=== PATIENT | male | born 1935 | race Caucasian/White ===

== ENCOUNTER 2016-06-01 16:04 | Emergency (ER) | payer MEDICARE ==
--- NOTE | 2016-06-01 16:19 | Emergency Department Record ---
History of Present Illness - General Chief Complaint: Confusion Stated Complaint: CONFUSED,POSS STROKE Time Seen by Provider: 06/01/16 16:18 Source: Patient, Family Mode of Arrival: Ambulatory Limitations: No limitations - History of Present Illness Initial Comments: The patient is here due to mild confusion for the last 2 days. According to his he has had a hx of very mild dementia but it seems to be worse the last couple of days. He now is more confused at home and getting lost at times and not remembering what he is supposed to be doing. The patient and deny any recent illnesses, fever, chills, cough, CP, SOB, JOVEL or trauma. MD Complaint: Confusion Onset/Timin -: Days(s) Severity: Mild Consistency: Intermittent - Alba Coma Scale Eye Response: (4) Open spontaneously Motor Response: (6) Obeys commands Verbal Response: (4) Confused conversation Lyly Total: 14 - Related Data Home Medications Medication Instructions Recorded Confirmed Last Taken Albuterol Sulfate [Proventil Hfa] 1 puff IH DAILY 01/14/16 06/01/16 1 Day Ago Alendronate Sodium [Alendronate 70 mg PO DAILY 01/14/16 06/01/16 1 Day Ago Sodium] Aspirin [Adult Low Dose Aspirin EC] 81 mg PO DAILY 01/14/16 06/01/16 1 Day Ago Budesonide/Formoterol Fumarate 1 puff IH DAILY 01/14/16 06/01/16 1 Day Ago [Symbicort 80-4.5 Mcg Inhaler] Calcium Carbonate 600 mg PO DAILY 01/14/16 06/01/16 1 Day Ago Carvedilol [Coreg] 6.25 mg PO BID 01/14/16 06/01/16 1 Day Ago Gemfibrozil [Lopid] 600 mg PO BID 01/14/16 06/01/16 1 Day Ago Glimepiride [Glimepiride] 4 mg PO DAILY 01/14/16 06/01/16 1 Day Ago Memantine HCl [Namenda] 10 mg PO BID 01/14/16 06/01/16 1 Day Ago Nitroglycerin [Nitrostat] 0.4 mg SL ASDIR PRN 01/14/16 06/01/16 1 Day Ago [place]-3 Fatty Acids [Fish Oil] 300 mg PO DAILY 01/14/16 06/01/16 1 Day Ago Omeprazole 20 mg PO DAILY 01/14/16 06/01/16 1 Day Ago Sitagliptin Phosphate [Januvia] 100 mg PO DAILY 01/14/16 06/01/16 1 Day Ago Losartan Potassium [Cozaar] 25 mg PO DAILY 06/01/16 06/01/16 1 Day Ago Allergies Allergy/AdvReac Type Severity Reaction Status Date / Time amoxicillin Allergy Unknown PT UNSURE Verified 06/01/16 16:17 OF REACTION cimetidine Allergy Unknown PT UNSURE Verified 06/01/16 16:17 OF REACTION dutasteride [From AVODART] Allergy Unknown PT UNSURE Verified 06/01/16 16:17 OF REACTION lisinopril Allergy Unknown PT UNSURE Verified 06/01/16 16:17 OF REACTION Allergies: Allergy Unknown PT UNSURE Uncoded 06/01/16 16:17 OF REACTION Travel Screening - Travel/Exposure Within Last 30 Days Have you traveled within the last 30 days?: No - Travel/Exposure Within Last Year Have you traveled outside the [place] in the last year?: No - Additonal Travel Details Have you been exposed to anyone with a communicable illness?: No - Travel Symptoms Symptom Screening: None Review of Systems Constitutional: Denies: Chills, Fever, Malaise Eyes: Denies: Eye discharge ENT: Denies: Congestion Respiratory: Denies: Cough, Dyspnea Cardiovascular: Denies: Chest pain Endocrine: Denies: Fatigue Gastrointestinal: Denies: Constipation, Diarrhea Genitourinary: Denies: Dysuria, Testicular mass Musculoskeletal: Denies: Back pain Skin: Denies: Bruising Past Medical History - SOCIAL HISTORY Smoking Status: Current every day smoker Alcohol Use: None Drug Use: None - RESPIRATORY Hx Respiratory Disorders: Yes Hx Bronchitis: Yes (recently-received treatment) Hx COPD: Yes (or emphysema) - CARDIOVASCULAR Hx Cardio Disorders: Yes Hx Cardiac Cath: Yes Hx Deep Vein Thrombosis: Yes (1996) Hx Heart Attack: Yes (1996) Hx Irregular Heartbeat: Yes Hx Coronary Stent: Yes (03/1997 x1 then x1 a week later, then x1 04/1997) - NEURO Hx Neuro Disorders: No Hx Dementia: (memory issues?) Comment:: memory issues getting worse - GI Hx GI Disorders: Yes Hx of Polyps: Yes - Hx Genitourinary Disorders: Yes Hx Prostate Problems: Yes (BPH) - ENDOCRINE Hx Endocrine Disorders: Yes Hx Diabetes: Yes (type 2) - MUSCULOSKELETAL Hx Musculoskeletal Disorders: Yes Hx Osteoporosis: Yes - PSYCH Hx Psych Problems: No - HEMATOLOGY/ONCOLOGY Hx Hematology/Oncology Disorders: No Family Medical History Any Significant Family History?: Yes Hx Cancer: Father, Brother/Sister Physical Exam - General General Appearance: Alert, Oriented x3 (The patient is oriented to name, place, day of the week but thinks the year is 2004. He knows his and the number of years he has been . ), Cooperative (The patient is very cooperative and pleasant and happy.), No acute distress - Head Head exam: Normal inspection - Eye Eye exam: Normal appearance, PERRL - ENT ENT exam: Normal exam, Mucous membranes moist, Normal external ear exam, Normal orophraynx, TM's normal bilaterally Throat exam: Normal inspection. negative: Tonsillar erythema, Tonsillar exudate - Neck Neck exam: Normal inspection, Full ROM. negative: Tenderness - Respiratory Respiratory exam: Normal lung sounds bilaterally. negative: Respiratory distress - Cardiovascular Cardiovascular Exam: Regular rate, Normal rhythm, Normal heart sounds - GI/Abdominal GI/Abdominal exam: Soft, Normal bowel sounds. negative: Tenderness - Back Back exam: Reports: Normal inspection - Neurological Neurological exam: Alert, Normal gait, Oriented X3. negative: Abnormal gait, Altered, Motor sensory deficit - Psychiatric Psychiatric exam: negative: Agitated, Anxious, Depressed Course Vital Signs 06/01/16 16:07 Temperature 98.0 F Pulse Rate 83 Respiratory 20 Rate Blood Pressure 198/91 Pulse Ox 94 L - Reevaluation(s) Reevaluation #1: The patient is doing very well at this time. I did discuss the labs and head CT with the patient and . I did discuss the issues with the patient and and did recommend hospital admission due to the fact the patient appears to be having new strokes. The would like to go to [facility] so we will make the necessary arrangements. 06/01/16 17:56 Reevaluation #2: The family would like to go to [facility] so I did discuss the case with Dr. Upton and he accepts the patient for admission in transfer. 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
[2016-06-01 16:47] LABS: BASO % 0.4 % (0-6); EOS % 1.9 % (0-6); GRAN % 72.7 % (47-80); HEMATOCRIT 47.2 % (42.0-52.0); HEMOGLOBIN 15.5 gm/dl (14.0-18.0); LYMPH % 15.1 % (16-45); MEAN CELL VOLUME 80.1 fl (81-97); MEAN CORPUSCULAR HEMOGLOBIN 26.3 pg (27-33); MEAN CORPUSCULAR HGB CONC 32.8 g/dl (32-36); MONO % 9.9 % (0-9); PLATELET COUNT 385 K/uL (130-400); RED BLOOD COUNT 5.89 M/uL (4.40-5.70); URINE APPEARANCE SL CLOUDY; URINE BILIRUBIN NEGATIVE (NEGATIVE); URINE BLOOD NEGATIVE (NEGATIVE); URINE COLOR YELLOW; URINE GLUCOSE (UA) NEGATIVE (NEGATIVE); URINE KETONE NEGATIVE (NEGATIVE); URINE LEUKOCYTE ESTERASE NEGATIVE (NEGATIVE); URINE NITRITE NEGATIVE (NEGATIVE); URINE PROTEIN NEGATIVE (NEGATIVE); URINE UROBILINOGEN 0.2 E.U./dL (0.20 - 1.00); WHITE BLOOD COUNT W/O DIFF 8.3 K/uL (4.2-12.2)
[2016-06-01 16:59] LABS: INR 1.03; PARTIAL THROMBOPLASTIN TIME 27.3 SECONDS (24.5-39.1); PROTHROMBIN TIME (PATIENT) 11.6 SECONDS (9.5-12.1)
[2016-06-01 17:39] LABS: ALB/GLOB RATIO 1.3 (1.1-1.8); ALBUMIN 4.4 gm/dL (3.5-5.0); ALKALINE PHOSPHATASE 130 U/L (38-126); ALT/SGPT 30 U/L (21-72); AST/SGOT 21 U/L (17-59); BILIRUBIN,TOTAL 0.69 mg/dL (0.2-1.3); BLOOD UREA NITROGEN 19 mg/dL (9-20); CREATINE PHOSPHOKINASE 63 U/L (55-170); CREATININE 0.9 mg/dL (0.66-1.25); EST GLOMERULAR FILTRATION RATE > 60 ml/min; GLUCOSE,RANDOM 130 mg/dL (70-110); TOTAL PROTEIN 7.9 gm/dL (6.3-8.2)
[2016-06-01 17:53] LABS: CKMB 1.3 ug/L (0-6)
[2016-06-01 17:55] LABS: TROPONIN I < 0.012 ng/mL (0.00-0.034)
[2016-06-01] MEDS ORDERED: ASPIRIN 325 MG TABLET PO ONE (17:59)
== END 2016-06-01 19:15 | disposition short-term general hospital (02) ==
LOC: ER 16:04
DX: I63.9 Cerebral infarction, unspecified (principal); I25.2 Old myocardial infarction; J44.9 Chronic obstructive pulmonary disease, unspecified; F17.210 Nicotine dependence, cigarettes, uncomplicated; E11.9 Type 2 diabetes mellitus without complications; Z79.84 Long term (current) use of oral hypoglycemic drugs
CPT/HCPCS: 70450; 80053; 81003; 82550; 82553; 84484; 85025; 85610; 85730; 93005; 93010; 99285

== ENCOUNTER 2017-01-07 15:26 | Emergency (ER) | payer MEDICARE ==
--- NOTE | 2017-01-07 15:52 | Emergency Department Record ---
History of Present Illness - General Chief Complaint: Wound, check Stated Complaint: SORE THAT KEEPS BLEEDING Time Seen by Provider: 01/07/17 15:37 Source: Patient, Family Mode of arrival: Ambulatory Limitations: No limitations - History of Present Illness Initial Comments: 81 yo male presents with a bleeding wound on his sacral area. His PCP Dr Parsons has been treating a superficial sacral woundfor about 3 weeks. He was cleaning the area today and it began to bleed. He is on Coumadin. NO other recent changes in his health. MD Complaint: Wound re-check -: Hour(s) (3) Initial Visit For: Other Returns Today for: Wound recheck Symptoms Since Prior Visit: No new symptoms Associated Symptoms: None - Related Data Home Medications Medication Instructions Recorded Confirmed Last Taken Atorvastatin Calcium 10 mg PO DAILY 01/07/17 01/07/17 Unknown Calcium Carb, Citrate/Vit D3 1 each PO DAILY 01/07/17 01/07/17 Unknown [Citracal + D ER Tablet] Cholecalciferol (Vitamin D3) 1,000 unit PO WEEKLY 01/07/17 01/07/17 Unknown [Vitamin D3] Warfarin Sodium [Coumadin] 2 mg PO DAILY 01/07/17 01/07/17 Unknown Allergies Allergy/AdvReac Type Severity Reaction Status Date / Time amoxicillin Allergy Unknown PT UNSURE Verified 06/01/16 16:17 OF REACTION cimetidine Allergy Unknown PT UNSURE Verified 06/01/16 16:17 OF REACTION dutasteride [From AVODART] Allergy Unknown PT UNSURE Verified 06/01/16 16:17 OF REACTION lisinopril Allergy Unknown PT UNSURE Verified 06/01/16 16:17 OF REACTION metformin Allergy DIARRHEA Verified 01/07/17 15:44 tamsulosin [From Flomax] Allergy ANAPHYLAXIS Verified 01/07/17 15:44 Allergies: Allergy Unknown PT UNSURE Uncoded 06/01/16 16:17 OF REACTION Review of Systems Constitutional: Denies: Chills, Fever, Malaise, Weakness Eyes: Denies: Eye discharge, Eye pain, Photophobia, Vision change ENT: Denies: Congestion, Throat pain Respiratory: Denies: Cough, Dyspnea, Hemoptysis, Stridor, Wheezes Cardiovascular: Denies: Chest pain, Palpitations, Syncope Endocrine: Denies: Fatigue Gastrointestinal: Denies: Abdominal pain, Diarrhea, Nausea, Vomiting Genitourinary: Denies: Dysuria, Frequency, Hematuria Musculoskeletal: Denies: Arthralgia, Back pain, Myalgia Skin: Reports: As per HPI, Other. Denies: Bruising, Change in color Neurological: Denies: Confusion Psychiatric: Denies: Anxiety Hematological/Lymphatic: Reports: Easy bleeding, Easy bruising Past Medical History - SOCIAL HISTORY Smoking Status: Current every day smoker Drug Use: None - RESPIRATORY Hx Respiratory Disorders: Yes Hx Bronchitis: Yes (recently-received treatment) Hx COPD: Yes (or emphysema) - CARDIOVASCULAR Hx Cardio Disorders: Yes Hx Cardiac Cath: Yes Hx Deep Vein Thrombosis: Yes (1996) Hx Heart Attack: Yes (1996) Hx Irregular Heartbeat: Yes Hx Coronary Stent: Yes (03/1997 x1 then x1 a week later, then x1 04/1997) - NEURO Hx Neuro Disorders: No Hx Dementia: (memory issues?) Comment:: memory issues getting worse - GI Hx GI Disorders: Yes Hx of Polyps: Yes - Hx Genitourinary Disorders: Yes Hx Prostate Problems: Yes (BPH) - ENDOCRINE Hx Endocrine Disorders: Yes Hx Diabetes: Yes (type 2) - MUSCULOSKELETAL Hx Musculoskeletal Disorders: Yes Hx Osteoporosis: Yes - PSYCH Hx Psych Problems: No - HEMATOLOGY/ONCOLOGY Hx Hematology/Oncology Disorders: No Family Medical History Hx Cancer: Father, Brother/Sister Physical Exam - General General Appearance: Alert, Oriented x3, Cooperative, No acute distress Limitations: No limitations - Head Head exam: Atraumatic, Normal inspection - Eye Eye exam: Normal appearance - ENT ENT exam: Normal exam Ear exam: Normal external inspection Nasal Exam: Normal inspection Mouth exam: Normal external inspection - Neck Neck exam: Normal inspection - Cardiovascular Peripheral Pulses: 2+: Radial (R), Radial (L) - Rectal Rectal exam: Other (superfical sacral skin ulcer with very superficial raw area inferior with oozing) - Extremities Extremities exam: Normal inspection Image of Full Body: 1 - superficial skin ulcer, below that is a raw area with mild oozing. - Back Back exam: Reports: Normal inspection - Neurological Neurological exam: Alert, Oriented X3 - Psychiatric Psychiatric exam: Normal affect, Normal mood - Skin Skin exam: Abrasion (sacral) Course - Reevaluation(s) Reevaluation #1: NR is 3.7 Hgb is 12 01/07/17 16:26 01/07/17 The area involved continue to ooze. The area was gently cauterized with silver nitrate with very good results with no recurrence of bleeding. The area was dressed with silvadene and non stick dressing. We discussed holding the next dose of Coumadin. He will recheck his INR first of the week with his PCP. He was given the number to the wound clinic in [place] and urged to contact his [place] home care nurse as well as they may be able to provide some in home care. Medical Decision Making - Lab Data Result diagrams: 01/07/17 15:55 01/07/17 15:55 Disposition Disposition: Discharge Clinical Impression: Sacral ulcer, Skin abrasion Disposition: Home, Self-Care Condition: (1) Good Instructions: Abrasion (ED) Additional Instructions: Return to the ER if the area continues to bleed Call your doctor and [phone] and ask for the wound center for a referral Change the dressing and apply the topical ointment daily Hold one dose of Coumadin and recheck your PT INR with your doctor Monday Forms: Patient Portal Access Time of Disposition: 15:57 Quality - Quality Measures Quality Measures: N/A - Blood Pressure Screening Does Patient Have Any of the Following: No Blood Pressure Classification: Pre-Hypertensive BP Reading Systolic Measurement: 102 Diastolic Measurement: 83 Screening for High Blood Pressure: < Pre-Hypertensive BP, F/U Documented > [ G8950] Pre-Hypertensive Follow-up Interventions: Referral to alternative/primary care provider.
[2017-01-07] MEDS: SILVER SULFADIAZINE 25 GM CREAM TOP ONE (16:00)
[2017-01-07 16:04] LABS: BASO % 0.3 % (0-6); EOS % 1.4 % (0-6); GRAN % 77.1 % (47-80); HEMATOCRIT 38.5 % (42.0-52.0); LYMPH % 12.2 % (16-45); MEAN CELL VOLUME 75.8 fl (81-97); MEAN CORPUSCULAR HEMOGLOBIN 23.6 pg (27-33); MEAN CORPUSCULAR HGB CONC 31.2 g/dl (32-36); MEAN PLATELET VOLUME 10.4 fl (7.4-10.4); PLATELET COUNT 389 K/uL (130-400); RED BLOOD COUNT 5.08 M/uL (4.40-5.70); RED CELL DISTRIBUTION WIDTH 15.3 % (11.5-14.5); WHITE BLOOD COUNT W/O DIFF 7.6 K/uL (4.2-12.2)
[2017-01-07 16:18] LABS: INR 3.7
[2017-01-07 16:22] LABS: PROTHROMBIN TIME (PATIENT) 40.5 SECONDS (9.5-12.1)
[2017-01-07 16:23] LABS: BLOOD UREA NITROGEN 17 mg/dL (8-23); CREATININE 0.7 mg/dL (0.7-1.2); EST GLOMERULAR FILTRATION RATE > 60 mL/min; GLUCOSE,RANDOM 149 mg/dL (74-109)
[2017-01-07] MEDS: GELATIN SPONGE,ABSORBABLE 1 EACH SPONGE TP ONE (16:47)
[2017-01-07] MEDS: TOPICAL LIDOCAINE W/ EPI 5 ML TOP ONE (16:48)
== END 2017-01-07 16:48 | disposition home or self-care (01) ==
LOC: ER 15:26
DX: L98.411 Non-pressure chronic ulcer of buttock limited to breakdown of skin (principal); Z79.01 Long term (current) use of anticoagulants
CPT/HCPCS: 80048; 85025; 85610; 99283

== ENCOUNTER 2017-02-04 10:35 | Emergency (ER) | payer MEDICARE ==
[2017-02-04 11:01] LABS: HEMATOCRIT 38.5 % (42.0-52.0); MEAN CELL VOLUME 74.8 fl (81-97); MEAN CORPUSCULAR HEMOGLOBIN 23.3 pg (27-33); MEAN CORPUSCULAR HGB CONC 31.2 g/dl (32-36); MEAN PLATELET VOLUME 9.8 fl (7.4-10.4); PLATELET COUNT 420 K/uL (130-400); RED BLOOD COUNT 5.15 M/uL (4.40-5.70); RED CELL DISTRIBUTION WIDTH 15.1 % (11.5-14.5); WHITE BLOOD COUNT W/O DIFF 10.4 K/uL (4.2-12.2)
[2017-02-04 11:11] LABS: INR 3.73
--- NOTE | 2017-02-04 11:14 | Emergency Department Record ---
History of Present Illness - General Chief Complaint: Altered Mental Status Stated Complaint: POSS STROKE Time Seen by Provider: 02/04/17 10:41 Source: Patient, Family () Mode of Arrival: Wheelchair - History of Present Illness Initial Comments: confusion today and he had a large CVA june, COPD and DM , Atrial fib with coumadin, some dementia. Bryon Trevizo is Dr. Parsons. Currently sleeping 18 hours per day. Lately using walker and fell twice and right hip broken August. called visiting nurse today and she said go to the hospital after her evaluation at his house. Onset/Timin -: Hour(s) - Fisher Coma Scale Eye Response: (4) Open spontaneously Motor Response: (6) Obeys commands Verbal Response: (4) Confused conversation Fisher Total: 14 - Related Data Home Medications Medication Instructions Recorded Confirmed Last Taken Budesonide/Formoterol Fumarate 10.2 gm IH BID 02/04/17 02/04/17 02/04/17 07:00 [Symbicort 160-4.5 Mcg Inhaler] Allergies Allergy/AdvReac Type Severity Reaction Status Date / Time amoxicillin Allergy Unknown PT UNSURE Verified 02/04/17 11:18 OF REACTION cimetidine Allergy Unknown PT UNSURE Verified 02/04/17 11:18 OF REACTION dutasteride [From AVODART] Allergy Unknown PT UNSURE Verified 02/04/17 11:18 OF REACTION lisinopril Allergy Unknown PT UNSURE Verified 02/04/17 11:18 OF REACTION metformin Allergy DIARRHEA Verified 02/04/17 11:18 tamsulosin [From Flomax] Allergy ANAPHYLAXIS Verified 02/04/17 11:18 Travel Screening - Travel/Exposure Within Last 30 Days Have you traveled within the last 30 days?: No - Travel/Exposure Within Last Year Have you traveled outside the [place] in the last year?: No - Additonal Travel Details Have you been exposed to anyone with a communicable illness?: No - Travel Symptoms Symptom Screening: None Review of Systems Reviewed: No additional complaints except as noted below Constitutional: Reports: As per HPI. Denies: Chills, Fever, Malaise, Night sweats, Weakness, Weight change Eyes: Reports: As per HPI. Denies: Eye discharge, Eye pain, Photophobia, Vision change ENT: Reports: As per HPI, Congestion. Denies: Dental pain, Ear pain, Epistaxis , Hearing loss, Throat pain Respiratory: Reports: As per HPI, Cough. Denies: Dyspnea, Hemoptysis, Stridor, Wheezes Cardiovascular: Reports: As per HPI. Denies: Arrhythmia, Chest pain, Dyspnea on exertion, Edema, Murmurs, Orthopnea, Palpitations, Paroxysmal nocturnal dyspnea, Rheumatic Fever, Syncope Endocrine: Reports: As per HPI. Denies: Fatigue, Heat or cold intolerance, Polydipsia, Polyuria Gastrointestinal: Reports: As per HPI. Denies: Abdominal pain, Constipation, Diarrhea, Hematemesis, Hematochezia, Melena, Nausea, Vomiting Genitourinary: Reports: As per HPI. Denies: Dysuria, Frequency, Hematuria, Incontinence, Retention, Testicular pain, Testicular mass, Urgency Musculoskeletal: Reports: As per HPI. Denies: Arthralgia, Back pain, Gout, Joint swelling, Myalgia, Neck pain Skin: Reports: As per HPI. Denies: Bruising, Change in color, Change in hair/ nails, Lesions, Pruritus, Rash Neurological: Reports: As per HPI. Denies: Abnormal gait, Confusion, Headache, Numbness, Paresthesias, Seizure, Tingling, Tremors, Vertigo, Weakness Psychiatric: Reports: As per HPI. Denies: Anxiety, Auditory hallucinations, Depression, Homicidal thoughts, Suicidal thoughts, Visual hallucinations Hematological/Lymphatic: Reports: As per HPI. Denies: Anemia, Blood Clots, Easy bleeding, Easy bruising, Swollen glands Past Medical History - SOCIAL HISTORY Smoking Status: Current every day smoker Alcohol Use: None Drug Use: None - RESPIRATORY Hx Respiratory Disorders: Yes Hx Bronchitis: Yes (recently-received treatment) Hx COPD: Yes (or emphysema) - CARDIOVASCULAR Hx Cardio Disorders: Yes Hx Cardiac Cath: Yes Hx Deep Vein Thrombosis: Yes (1996) Hx Heart Attack: Yes (1996) Hx Irregular Heartbeat: Yes Hx Coronary Stent: Yes (03/1997 x1 then x1 a week later, then x1 04/1997) - NEURO Hx Neuro Disorders: No Hx Dementia: (memory issues?) Comment:: memory issues getting worse - GI Hx GI Disorders: Yes Hx of Polyps: Yes - Hx Genitourinary Disorders: Yes Hx Prostate Problems: Yes (BPH) - ENDOCRINE Hx Endocrine Disorders: Yes Hx Diabetes: Yes (type 2) - MUSCULOSKELETAL Hx Musculoskeletal Disorders: Yes Hx Osteoporosis: Yes - PSYCH Hx Psych Problems: No - HEMATOLOGY/ONCOLOGY Hx Hematology/Oncology Disorders: No Family Medical History Any Significant Family History?: No Hx Cancer: Father, Brother/Sister Physical Exam - General General Appearance: Cooperative, Mild distress, Other (sleeping 18 hours a day) - Head Head exam: Normal inspection - Eye Eye exam: Normal appearance, PERRL Pupils: Normal accommodation - ENT ENT exam: Normal exam, Mucous membranes moist, Normal external ear exam, Normal orophraynx, TM's normal bilaterally Ear exam: Normal external inspection. negative: External canal tenderness Nasal Exam: Normal inspection. negative: Discharge, Sinus tenderness Mouth exam: Normal external inspection, Tongue normal Teeth exam: Normal inspection. negative: Dental caries Throat exam: Normal inspection. negative: Tonsillar erythema, Tonsillar exudate - Neck Neck exam: Normal inspection, Full ROM. negative: Tenderness - Respiratory Respiratory exam: Normal lung sounds bilaterally. negative: Respiratory distress - Cardiovascular Cardiovascular Exam: Regular rate, Normal rhythm, Normal heart sounds - GI/Abdominal GI/Abdominal exam: Soft, Normal bowel sounds. negative: Tenderness - Rectal Rectal exam: Deferred - exam: Deferred - Extremities Extremities exam: Normal inspection, Full ROM, Normal capillary refill. negative: Tenderness - Back Back exam: Reports: Normal inspection, Full ROM. Denies: Muscle spasm, Rash noted, Tenderness - Neurological Neurological exam: Alert, Normal gait, Oriented X3, Reflexes normal - Psychiatric Psychiatric exam: Normal affect, Normal mood - Skin Skin exam: Dry, Intact, Normal color, Warm Course Vital Signs 02/04/17 10:49 Temperature 98.8 F Pulse Rate 102 H Respiratory 18 Rate Blood Pressure 143/80 Pulse Ox 97 - Reevaluation(s) Reevaluation #1: transfer to [facility] for neurosurgical treatment 02/04/17 12:49 Reevaluation #2: discussed case with Dr Weldon and a bed is being set up with critical care or neuroICU. [facility] one will call back 02/04/17 13:13 Reevaluation #3: discussed case with [facility] and no beds available and called neurosurg at [place] with Dr. Mallika Celaya and [facility]. 02/04/17 13:42 Reevaluation #4: transfer [facility] 02/04/17 14:48 Medical Decision Making - Data Complexity MDM Data: X-Ray Ordered and/or Reviewed (bilateral subdural hematomas) - Lab Data Result diagrams: 02/04/17 10:46 02/04/17 10:46 Lab Results 02/04/17 02/04/17 Range/Units 10:46 10:46 WBC 10.4 (4.2-12.2) K/uL RBC 5.15 (4.40-5.70) M/uL Hgb 12.0 L (14.0-18.0) gm/dl Hct 38.5 L (42.0-52.0) % MCV 74.8 L (81-97) fl MCH 23.3 L (27-33) pg MCHC 31.2 L (32-36) g/dl RDW 15.1 H (11.5-14.5) % Plt Count 420 H (130-400) K/uL MPV 9.8 (7.4-10.4) fl Eosinophils % Not Reportable Basophils % Not Reportable Ammonia Cancelled Disposition Clinical Impression: Subdural hematoma, Confusion, Elevated INR, Anticoagulated on Coumadin COPD (chronic obstructive pulmonary disease) Qualifiers: COPD type: unspecified COPD Qualified Code(s): J44.9 - Chronic obstructive pulmonary disease, unspecified Atrial fibrillation Qualifiers: Atrial fibrillation type: chronic Qualified Code(s): I48.2 - Chronic atrial fibrillation Disposition: Acute Care Hospital Transfer Condition: (2) Stable Forms: Patient Portal Access Quality - Quality Measures Quality Measures: N/A - Blood Pressure Screening Does Patient Have Any of the Following: No Blood Pressure Classification: Pre-Hypertensive BP Reading Systolic Measurement: 143 Diastolic Measurement: 80 Screening for High Blood Pressure: < Pre-Hypertensive BP, F/U Documented > [ G8950] Pre-Hypertensive Follow-up Interventions: Referral to alternative/primary care provider.
[2017-02-04 11:17] LABS: ALBUMIN 3.8 g/dL (4.0-5.0); ALKALINE PHOSPHATASE 172 U/L (40-129); ALT/SGPT 11 U/L (<41); AST/SGOT 16 U/L (10.0-50.0); BILIRUBIN,DIRECT 0.3 mg/dL (0-0.3); BLOOD UREA NITROGEN 15 mg/dL (8-23); CREATININE 0.5 mg/dL (0.7-1.2); EST GLOMERULAR FILTRATION RATE > 60 mL/min; GLUCOSE,RANDOM 194 mg/dL (74-109); TOTAL PROTEIN 7.4 g/dL (6.6-8.7)
[2017-02-04 11:22] LABS: ACETAMINOPHEN < 5.0 ug/mL (10.0-30.0); SALICYLATE < 0.3 mg/dL (2.8-20)
[2017-02-04 11:28] LABS: PROTHROMBIN TIME (PATIENT) 40.8 SECONDS (9.5-12.1)
[2017-02-04 11:29] LABS: PARTIAL THROMBOPLASTIN TIME 47.4 SECONDS (24.5-39.1)
[2017-02-04] MEDS: 0.9 % SODIUM CHLORIDE 1000ML 1,000 ML IV PRN (11:29)
[2017-02-04 11:50] LABS: URINE APPEARANCE CLEAR; URINE BILIRUBIN NEGATIVE (NEGATIVE); URINE BLOOD SMALL (NEGATIVE); URINE COLOR YELLOW; URINE GLUCOSE (UA) NEGATIVE (NEGATIVE); URINE KETONE NEGATIVE (NEGATIVE); URINE LEUKOCYTE ESTERASE NEGATIVE (NEGATIVE); URINE NITRITE NEGATIVE (NEGATIVE); URINE PROTEIN NEGATIVE (NEGATIVE)
[2017-02-04 11:58] LABS: AMPHETAMINE SCREEN URINE NOT DETECTED; BARBITURATE SCREEN URINE NOT DETECTED; BENZODIAZEPINE SCREEN URINE NOT DETECTED; COCAINE SCREEN URINE NOT DETECTED; METHADONE SCREEN URINE NOT DETECTED; METHAMPHETAMINE SCREEN NOT DETECTED; OPIATE SCREEN URINE NOT DETECTED; OXYCODONE SCREEN URINE NOT DETECTED; PHENCYCLIDINE SCREEN URINE NOT DETECTED; PROPOXYPHENE SCREEN URINE NOT DETECTED; THC SCREEN URINE NOT DETECTED; TRICYCLIC ANTIDEPRESSANT SCRN DETECTED
[2017-02-04 12:00] LABS: URINE SQUAMOUS EPITHELIAL CELL 0 - 2 /hpf; URINE WBC 0 - 2 (0-2/hpf)
[2017-02-04] MEDS: IPRATROPIUM/ALBUTEROL (0.5MG/3MG) NEB INH ONE (12:22)
[2017-02-04] MEDS: TRANEXAMIC ACID 1,000 MG in 0.9 % SODIUM CHLORIDE 100ML 100 ML IV ONE (12:50)
[2017-02-04] MEDS: PHYTONADIONE 10 MG in 0.9 % SODIUM CHLORIDE 100ML 100 ML IVPB ONE (13:01)
[2017-02-04] MEDS: TRANEXAMIC ACID 1,000 MG in 0.9 % SODIUM CHLORIDE 500ML 500 ML IV ONE (13:09)
[2017-02-04] MEDS: KCENTRA (PCC) 1,000 UNIT KIT IV ONE (13:40)
--- NOTE | 2017-02-05 11:16 | RADIOLOGY REPORT ---
EXAM: CHEST 2 VIEWS HISTORY: COUGH. POSSIBLE CVA. COMPARISON: 08/23/07. TECHNIQUE: Two views of the chest. FINDINGS: The cardiomediastinal silhouette is stable. There are coarsened interstitial markings, likely related to scarring/fibrosis. No focal consolidation or pleural effusion. The lungs appear hyperinflated, which may relate to COPD. Moderate degenerative changes within the thoracic spine. Multiple slight compression deformities throughout, as before. IMPRESSION: NO ACUTE CARDIOPULMONARY ABNORMALITY. POSSIBLE COPD. [facility]BER: [id number] [facility]
--- NOTE | 2017-02-05 11:22 | CT SCAN REPORT ---
EXAM: CT SCAN HEAD WO CONTRAST HISTORY: ALTERED MENTAL STATUS. COMPARISON: None. TECHNIQUE: Routine noncontrast CT images of the head were obtained. FINDINGS: Note is made of bilateral mixed-density subdural hematomas. This suggests a chronic process, though with acute changes. There are intervening septations and loculations. Scattered hyperdense foci are noted bilaterally. Hematoma measures 14 mm in thickness on the right and 17 mm on the left. Given the bilaterality, there is no significant midline shift. The ventricles are diminutive bilaterally. Suspect underlying cerebral atrophy, though not well assessed due to moderate bilateral subdural hematomas. No definite evidence of acute ischemia. Old ischemic change right cerebellar hemisphere with encephalomalacia posteroinferiorly. Scattered paranasal sinus mucosal thickening. IMPRESSION: MIXED-DENSITY BILATERAL SUBDURAL HEMATOMAS HAVING AN ACUTE ON CHRONIC APPEARANCE. THIS MEASURES UP TO 14 MM ON THE RIGHT AND 17 MM ON THE LEFT. NO ASSOCIATED MIDLINE SHIFT DUE TO BILATERALITY, THOUGH THERE IS SOME ATTENUATION OF THE VENTRICLES. BASILAR CISTERNS APPEAR PATENT. [facility]: [id number] [facility]
== END 2017-02-04 14:45 | disposition short-term general hospital (02) ==
LOC: ER 10:35
DX: I62.01 Nontraumatic acute subdural hemorrhage (principal); R79.1 Abnormal coagulation profile; J44.9 Chronic obstructive pulmonary disease, unspecified; I48.2 Chronic atrial fibrillation; E11.9 Type 2 diabetes mellitus without complications; I25.2 Old myocardial infarction; Z86.73 Personal history of transient ischemic attack (TIA), and cerebral infarction without residual deficits; Z79.01 Long term (current) use of anticoagulants; F17.210 Nicotine dependence, cigarettes, uncomplicated; Z79.899 Other long term (current) drug therapy
CPT/HCPCS: 99285 ×2; 96365; 96366; 96375; 96361; 82140; 85730; 85610; 80076; 80048; 36416; 81001; 82948; 80305; 85027; 71020; 70450; 93005; 93010; G0480 ×3; C9132; J3490; 80320; 80329; J7040